=== PATIENT | male | born 1985 ===

== ENCOUNTER 2016-12-24 03:22 | Emergency (ER) | payer SELFPAY ==
[2016-12-24 03:33] VITALS: BP 132/64; PULSE 79; RESP 18; TEMP 99.1; O2SAT 100
--- NOTE | 2016-12-24 03:47 | ED PDOC ---
HPI: CCC, URI, Sore Throat Time Seen by Provider: 12/24/16 03:46 Chief Complaint (Nursing): ENT Problem Chief Complaint (Provider): sore throat History Per: Patient (31 y/o male here with sore throat/right ear pain. STates he has had fever 3 days prior. Notes moderate sore throat and today also right ear pain.) Past Medical History Reviewed: Historical Data, Nursing Documentation, Vital Signs Vital Signs: Last Vital Signs Temp 99.1 F 12/24/16 03:31 Pulse 79 12/24/16 03:31 Resp 18 12/24/16 03:31 BP 132/64 12/24/16 03:31 Pulse Ox 100 12/24/16 03:47 - Family History Family History: States: No Known Family Hx - Home Medications Home Medications: Ambulatory Orders Medication Instructions Recorded Amoxicillin 500 mg PO TID #21 tablet 12/24/16 Ibuprofen [Motrin] 600 mg PO Q8 PRN #21 tab 12/24/16 - Allergies Allergies/Adverse Reactions: Allergies Allergy/AdvReac Type Severity Reaction Status Date / Time No Known Allergies Allergy Verified 12/24/16 03:31 Review of Systems ROS Statement: Except As Marked, All Systems Reviewed And Found Negative Physical Exam - Reviewed Nursing Documentation Reviewed: Yes Vital Signs Reviewed: Yes - Physical Exam Appears: Positive for: Well, Non-toxic, No Acute Distress Head Exam: Positive for: ATRAUMATIC, NORMAL INSPECTION, NORMOCEPHALIC Skin: Positive for: Normal Color, Warm, DRY Eye Exam: Positive for: EOMI, Normal appearance, PERRL ENT: Positive for: Normal ENT Inspection, Other (right preauricular lymphnode noted.) Neck: Positive for: Normal, Painless ROM Cardiovascular/Chest: Positive for: Regular Rate, Rhythm Respiratory: Positive for: CNT, Normal Breath Sounds Gastrointestinal/Abdominal: Positive for: Normal Exam, Bowel Sounds, Soft Back: Positive for: Normal Inspection Extremity: Positive for: Normal ROM Neurologic/Psych: Positive for: Alert, Oriented - ECG O2 Sat by Pulse Oximetry: 100 - Progress ED Course And Treament: Motrin 600 mg x 1 dose rapid strep neg Disposition - Clinical Impression Clinical Impression: Pharyngitis - Patient ED Disposition Is Patient to be Admitted: No - Disposition Referrals: [facility] [Outside] Mario Chatman MD [Staff Provider] - Disposition: Routine/Home Disposition Time: 04:19 Condition: FAIR Prescriptions: Amoxicillin 500 mg PO TID #21 tablet Ibuprofen [Motrin] 600 mg PO Q8 PRN #21 tab PRN Reason: Pain, Moderate (4-7) Instructions: Otitis Media (ED) Forms: [facility] ED School/Work Excuse
== END 2016-12-24 04:25 | disposition home or self-care (01) ==
LOC: H.ER 03:22
DX: H66.91 Otitis media, unspecified, right ear (principal)